=== PATIENT | female | born 1930 | race Caucasian/White ===

== ENCOUNTER → 2017-04-06 | Outpatient (CLI) | payer MEDICARE, BC ==
[~2017-04-06] MED LIST: ACET-1757 PO; ASPI-770 PO; ATOR40TA78 PO; CALC-545 PO; CARI350T PO; CITA40TA5 PO; CLOP75TA22 PO; GABA600T2 PO; GABA800T2 PO; HYDR-3342 PO; HYDR12.53 PO; ISOS120T2 PO; ISOS30TA19 PO; LIDO5CRE19 TP; LIDO700A5 TD; LISI40TA PO; METO100T3 PO; MORP30TA81 PO; MULT-658 PO; TRAM-28 PO
== END | disposition home or self-care (01) ==
LOC: CVU 14:24
PROVIDERS: ATTEND Podiatrist Foot & Ankle Surgery
DX: I73.9 Peripheral vascular disease, unspecified (principal); I74.8 Embolism and thrombosis of other arteries; G45.9 Transient cerebral ischemic attack, unspecified; I10 Essential (primary) hypertension; E78.5 Hyperlipidemia, unspecified; I77.1 Stricture of artery; I25.10 Atherosclerotic heart disease of native coronary artery without angina pectoris; Z95.1 Presence of aortocoronary bypass graft
CPT/HCPCS: 93922; 93925

== ENCOUNTER → 2021-03-11 | Outpatient (CLI) | payer MEDICARE, BC ==
[~2021-03-11] MED LIST changes: -ACET-1757 PO; +ACET-2065 PO; +AMLO5TAB4 PO; +ASCO500T8 PO; -ASPI-770 PO; +ASPI81TA59 PO; +ATOR20TA37 PO; +B CO1TAB14 PO; -CALC-545 PO; +CALC-780 PO; +CALC1CAP8 PO; +CITA20TA6 PO; -CLOP75TA22 PO; +CLOP75TA52 PO; +CYAN50009 PO; +DICY20TA4 PO; +FURO20TA3 PO; -GABA600T2 PO; +GABA600T7 PO; -GABA800T2 PO; +GABA800T5 PO; +HYDR12.517 PO; -HYDR12.53 PO; +HYDR1TAB53 PO; -ISOS120T2 PO; +ISOS120T4 PO; -ISOS30TA19 PO; +ISOS30TA21 PO; -LIDO5CRE19 TP; +LIDO5CRE26 TP; +LISI-170 PO; -LISI40TA PO; +LISI40TA9 PO; -METO100T3 PO; +METO100T7 PO; +METO50TA82 PO; +MULT-449 PO; +OMEP40CA42 PO; -TRAM-28 PO; +TRAM-47 PO
[2021-03-11 15:22] LABS: ALANINE AMINOTRANSFERASE 23 U/L (12-78); ALBUMIN 3.4 g/dL (3.4-5.0); ANION GAP 5 mmol/L (5-15); CALCIUM 8.9 mg/dL (8.5-10.1); CHLORIDE 108 mmol/L (98-107); CREATININE 1.08 mg/dL (0.55-1.02)
[2021-03-11 15:24] LABS: ALKALINE PHOSPHATASE 93 U/L (45-117); BILIRUBIN,TOTAL 0.4 mg/dL (0.2-1.0); TOTAL PROTEIN 6.8 g/dL (6.4-8.2)
== END | disposition home or self-care (01) ==
LOC: STAR 13:59
PROVIDERS: ATTEND Orthopaedic Surgery Hand Surgery
DX: Z01.812 Encounter for preprocedural laboratory examination (principal); Z20.822 Contact with and (suspected) exposure to COVID-19; S63.00 Unspecified subluxation and dislocation of wrist and hand; X58.XXXD Exposure to other specified factors, subsequent encounter
CPT/HCPCS: 36415; 80053; 93005; U0003

== ENCOUNTER 2021-03-17 06:12 | Day surgery (SDC) | payer MEDICARE, BC ==
[~2021-03-17] VITALS: Ht 160 cm; Wt 94.0 kg
[~2021-03-17 06:12] MED LIST changes: +BUPIVACAINE/PF 0.5% ONE; +LIDOCAINE-MPF 1%, 5ML ONE
[2021-03-17] MEDS ORDERED: FENTANYL PF 250 MCG/5ML ONE (06:25)
[2021-03-17] MEDS ORDERED: CEFAZOLIN 1,000 MG ONE (06:27)
[2021-03-17] MEDS ORDERED: ONDANSETRON 2MG/ML, 2ML ONE (06:27)
[2021-03-17] MEDS ORDERED: PROPOFOL 10 MG/ML, 20ML ONE (06:27)
[2021-03-17] MEDS ORDERED: CHLORHEXIDINE 15 ML UDC ONE (06:43)
[2021-03-17 06:45] VITALS: BP 170/77
[2021-03-17] MEDS ORDERED: PROMETHAZINE 25 MG/ML, 1ML IVPush PRN (07:00)
[2021-03-17] MEDS ORDERED: FENTANYL PF 100 MCG/2ML IV PRN (07:00)
[2021-03-17] MEDS ORDERED: DEXAMETHASONE 4 MG/ML, 1ML ONE (07:00)
[2021-03-17] MEDS ORDERED: LABETALOL 5MG/ML, 20ML IV PRN (07:00)
[2021-03-17] MEDS ORDERED: HYDROmorphone 1 MG/ML, 1ML INJ IVPush PRN (07:00)
[2021-03-17] MEDS ORDERED: morphine SULFATE 10 MG/ML, 1ML IVPush PRN (07:00)
[2021-03-17] MEDS ORDERED: MEPERIDINE/PF 25MG/0.5ML IVPush PRN (07:00)
[2021-03-17] MEDS ORDERED: CHLORHEXIDINE 15 ML UDC PO ONE (07:00)
[2021-03-17] MEDS ORDERED: LACTATED RINGERS 1,000 ML IV SCH (07:00)
[2021-03-17] MEDS ORDERED: ACETAMINOPHEN 325 MG TABLET PO PRN (07:00)
[2021-03-17] MEDS ORDERED: HALOPERIDOL 5 MG/ML IV PRN (07:00)
[2021-03-17] MEDS ORDERED: OXYcodone 5 MG/5 ML ORAL.SOL UDC PO PRN (07:00)
[2021-03-17] MEDS ORDERED: hydrALAzine 20 MG/ML, 1ML IV PRN (07:00)
[2021-03-17] MEDS ORDERED: EPHEDRINE 50 MG/ML, 1ML ONE (07:16)
== END 2021-03-17 10:35 | disposition home or self-care (01) ==
LOC: OUT 06:12
PROVIDERS: ATTEND Orthopaedic Surgery Hand Surgery
DX: S66.517A Strain of intrinsic muscle, fascia and tendon of left little finger at wrist and hand level, initial encounter (principal); S66.515A Strain of intrinsic muscle, fascia and tendon of left ring finger at wrist and hand level, initial encounter; S66.513A Strain of intrinsic muscle, fascia and tendon of left middle finger at wrist and hand level, initial encounter; I11.0 Hypertensive heart disease with heart failure; I50.9 Heart failure, unspecified; E78.5 Hyperlipidemia, unspecified; I25.10 Atherosclerotic heart disease of native coronary artery without angina pectoris; I25.2 Old myocardial infarction; Z79.1 Long term (current) use of non-steroidal anti-inflammatories (NSAID); Z79.891 Long term (current) use of opiate analgesic; Z79.899 Other long term (current) drug therapy; Z95.2 Presence of prosthetic heart valve; Z98.890 Other specified postprocedural states; Z82.49 Family history of ischemic heart disease and other diseases of the circulatory system; X58.XXXA Exposure to other specified factors, initial encounter; Y93.89 Activity, other specified; Y92.89 Other specified places as the place of occurrence of the external cause; Y99.8 Other external cause status
CPT/HCPCS: 26437; J0690; J1100; J2405; J2704; J3010; J7120